=== PATIENT | female | born 1965 | race Caucasian/White ===

== ENCOUNTER 2017-10-06 21:51 | Emergency (ER) | payer OTHER ==
[~2017-10-06] VITALS: Ht 170.2 cm; Wt 81.7 kg
[2017-10-06] MEDS ORDERED: NAPROSYN500 MG PO (22:11)
[2017-10-06] MEDS ORDERED: NORFLEX100 MG PO (22:11)
[2017-10-06] MEDS ORDERED: ULTRAM 50MG TAB50 MG PO (22:11)
== END 2017-10-06 22:32 | disposition home or self-care (01) ==
LOC: ER 21:51
DX: S16.1XXA Strain of muscle, fascia and tendon at neck level, initial encounter (principal); F17.210 Nicotine dependence, cigarettes, uncomplicated; V89.2XXA Person injured in unspecified motor-vehicle accident, traffic, initial encounter; Y93.89 Activity, other specified; Y92.89 Other specified places as the place of occurrence of the external cause; Y99.8 Other external cause status